=== PATIENT | female | born 1970 | race African-American/Black ===

== ENCOUNTER → 2025-04-24 | Day surgery (SDC) | payer BC ==
[~2025-04-24] MED LIST: LIDOCAINE HCL 2% LOCAL INJ 5 ML SDV VIAL INJ ONE; LISINOPRIL10 MG PO; MIDAZOLAM HCL 2 MG/2 ML VIAL ONE; NEOSTIGMINE 1 MG/ML 10ML VIAL ONE; PROPOFOL IV EMULSION 10 MG/ML 20 ML VIAL ONE; VITAMIN D250 MCG PO
[2025-04-24] MEDS: LACTATED RINGER'S 1,000 ML ONE (11:14)
[2025-04-24 12:12] VITALS: TEMP 97.8
[2025-04-24 12:45] VITALS: BP 188/97; PULSE 81; RESP 16; O2SAT 97
== END | disposition home or self-care (01) ==
LOC: OR 09:40 → EDSEX 11:00
PROVIDERS: ATTEND Internal Medicine Gastroenterology
DX: Z12.11 Encounter for screening for malignant neoplasm of colon (principal); D12.4 Benign neoplasm of descending colon; K64.8 Other hemorrhoids; D64.9 Anemia, unspecified; I10 Essential (primary) hypertension; Z88.6 Allergy status to analgesic agent; Z01.810 Encounter for preprocedural cardiovascular examination; Z79.899 Other long term (current) drug therapy; Z68.38 Body mass index [BMI] 38.0-38.9, adult
CPT/HCPCS: 45380; 93005; J2003; J2250; J2704; J7121; 45378; J2710